=== PATIENT | male | born 1950 | race Caucasian/White ===

== ENCOUNTER 2024-08-19 11:44 | Outpatient (CLI) | payer MEDICARE, SELFPAY ==
--- NOTE | 2024-08-19 11:54 | XR_ITS ---
WS: [id number] Lumbar spine with flexion, extension, and neutral lateral, 08/19/2024 Clinical Data: VERTEBROGENIC LOW BACK PAIN Comparison: None. Findings: No compression fractures or subluxation is seen. There is degenerative disc narrowing at all levels f rom T12-L1 to L5-S1. There are anterior bridging osteophytes at all lumbar levels and posterior osteo phytes at all levels. There is facet joint arthritis at every level. No instability is seen on flexion or extension.. There is a generator in the subcutaneous tissue overlying the posterior pelvis with wires leading tow kareen the thoracic epidural space. XR/XR lumbar spine f/e only [id number] Impression: 1. Multilevel osteoarthritis and degenerative disc narrowing. 2. Negative for instability on flexion or extension.
== END 2024-08-19 11:45 | disposition home or self-care (01) ==
LOC: RAD 11:49
PROVIDERS: Visit Provider Nurse Practitioner
DX: M46.94 Unspecified inflammatory spondylopathy, thoracic region (principal); M51.360 Other intervertebral disc degeneration, lumbar region with discogenic back pain only; M25.78 Osteophyte, vertebrae; M47.896 Other spondylosis, lumbar region; Z96.82 Presence of neurostimulator
CPT/HCPCS: 72120